=== PATIENT | female | born 1950 | race Caucasian/White ===

== ENCOUNTER 2017-03-13 11:48 | Emergency (ER) | payer MEDICARE ==
[~2017-03-13] VITALS: Ht 157.5 cm; Wt 72.1 kg
[2017-03-13 11:53] VITALS: BP 144/88
[2017-03-13] MEDS ORDERED: OMEP-110 PO (12:49)
[2017-03-13] MEDS ORDERED: AMLO5TAB2 PO (12:49)
[2017-03-13] MEDS ORDERED: CALC-126 PO (12:49)
[2017-03-13] MEDS ORDERED: LISI-170 PO (12:49)
== END 2017-03-13 13:36 | disposition home or self-care (01) ==
LOC: ED 12:41
DX: J02.9 Acute pharyngitis, unspecified (principal)
CPT/HCPCS: 71020; 87081; 87880; 99285

== ENCOUNTER → 2017-03-24 | Outpatient (CLI) | payer MEDICARE ==
[~2017-03-24] MED LIST: AMLO5TAB2 PO; CALC-126 PO; LISI-170 PO; OMEP-110 PO
== END | disposition home or self-care (01) ==
LOC: CFH 13:03
PROVIDERS: ATTEND Family Medicine
DX: Z12.31 Encounter for screening mammogram for malignant neoplasm of breast (principal)
CPT/HCPCS: G0202

== ENCOUNTER → 2017-12-08 | Outpatient (CLI) | payer MEDICARE | END | disposition home or self-care (01) | LOC: CFH 07:30 | PROVIDERS: ATTEND Nurse Practitioner Family | DX: K80.20 Calculus of gallbladder without cholecystitis without obstruction (principal); K21.9 Gastro-esophageal reflux disease without esophagitis; K76.9 Liver disease, unspecified | CPT/HCPCS: 76700 ==

== ENCOUNTER → 2018-03-25 | Outpatient (CLI) | payer MEDICARE | END | disposition home or self-care (01) | LOC: CFH 11:13 | PROVIDERS: ATTEND Family Medicine | DX: Z12.31 Encounter for screening mammogram for malignant neoplasm of breast (principal) | CPT/HCPCS: 77067 ==

== ENCOUNTER → 2019-04-01 | Outpatient (CLI) | payer MEDICARE ==
[~2019-04-01] MED LIST changes: +AMLO-150 PO; -AMLO5TAB2 PO
== END | disposition home or self-care (01) ==
LOC: CFH 11:15
PROVIDERS: ATTEND Family Medicine
DX: Z12.31 Encounter for screening mammogram for malignant neoplasm of breast (principal)
CPT/HCPCS: 77067